=== PATIENT | male | born 1955 | race Caucasian/White ===

== ENCOUNTER 2018-03-06 07:38 | Inpatient (IN) ==
--- NOTE | 2018-03-01 15:49 | MH ---
cc: Estelle Krishna MD DATE OF ADMISSION: 03/06/2018 DATE OF ADMISSION: 03/06/2018 ADMITTING DIAGNOSIS: Osteoarthritic degeneration left hip, now being admitted for left total hip arthroplasty. HISTORY OF PRESENT ILLNESS: This pleasant 62-year-old male is being admitted today for left total hip arthroplasty due to severe painful osteoarthritic degeneration of the left hip. PAST MEDICAL HISTORY: He has a history of back pain and arthritis. CURRENT MEDICATIONS: Antiinflammatories, which he is not taking at the moment. PAST SURGICAL HISTORY: Hernia repair. REVIEW OF SYSTEMS: Noncontributory. FAMILY HISTORY: Noncontributory. SOCIAL HISTORY: Does smoke cigarettes; a few a day and does work. ALLERGIES: HE HAS NO KNOWN ALLERGIES. PHYSICAL EXAMINATION: GENERAL: We find a 62-year-old male, well-developed, well-nourished, alert and oriented x 3, complaining of pain in his left hip. VITAL SIGNS: Blood pressure 140/90, pulse 106 and regular, respirations 16, temperature 97.7, pulse oximetry 96% on room air. HEENT: Eyes: PERRL. EOMI. Ears, nose, mouth clear. NECK: Supple. LUNGS: Clear. HEART: Regular rate. ABDOMEN: Soft, positive bowel sounds, nontender. EXTREMITIES: Reveal left to have decreased range of motion. He is neurovascularly intact to his toes. IMPRESSION: Severe painful osteoarthritic degeneration of the left hip. PLAN: Admission for left total hip arthroplasty . The patient was given prescription for postoperative pain and anticoagulation control in the office. MD CORBY Lugo/guy/mago , 01:52 PM , 01:59 PM
[2018-03-06] MEDS ORDERED: Chlorhexidine Gluconate 2% 1 Pack (2 Cloths) TOPICAL SCH (08:58)
[2018-03-06] MEDS ORDERED: Metoprolol Tartrate 25 MG Tablet PO SCH (08:58)
[2018-03-06] MEDS ORDERED: Sodium Chlor 0.9% Inj 500 ML IV.SIG SCH (09:00)
[2018-03-06] MEDS ORDERED: Sodium Chlor 0.9% Inj 80 ML, Bupivacaine Liposo PF 1.3% Inj 20 ML, Bupivacaine 0.25% In... P-ARTICULR SCH ×3 (09:00)
[2018-03-06] MEDS ORDERED: ceFAZolin 2 GM Premix Inj 2 GM/50 ML PIGGYBACK IV.SIG SCH (09:00)
[2018-03-06] MEDS ORDERED: Vancomycin Inj 1,000 MG in Sodium Chlor 0.9% Inj 250 ML IV.SIG SCH (09:00)
[2018-03-06] MEDS ORDERED: Chlorhexidine 4% Topical 120 APPLIC/120 ML Bottle TOPICAL SCH (09:00)
[2018-03-06] MEDS ORDERED: Acetaminophen 500 MG Tablet PO PRN (10:23)
[2018-03-06] MEDS ORDERED: Morphine Inj 4 MG/ML Vial IV.PUSH PRN (10:24)
[2018-03-06] MEDS ORDERED: Bisacodyl 10 MG Supp RECTAL PRN (10:24)
[2018-03-06] MEDS ORDERED: Post-op Orders (for Pharmacy) OTHER STA (10:24)
--- NOTE | 2018-03-06 10:38 | P.DCO ---
- Diagnosis (1) Status post total replacement of left hip Status: Acute - Physical Therapy Order: Evaluate and treat, Improve ambulation, Strength and gait training - Home Health Nursing Order: Medical education - Case Management Consult Yes - Certification I have seen patient Elio Coffey on 03/06/18. My clinical findings support the need for the requested home health care services because: High risk of falls I certify that my clinical findings support that this patient is homebound because: Post-op weakness, Unsteady gait/balance, Unsafe to leave home unassisted
[2018-03-06] MEDS ORDERED: Tranexamic Acid Inj 1,000 MG in Sodium Chlor 0.9% Inj 100 ML IV.SIG SCH ×3 (11:00→15:00)
[2018-03-06] MEDS ORDERED: Neostigmine Inj 5 MG/5 ML Syringe IV.PUSH ONE (11:27)
[2018-03-06] MEDS ORDERED: Glycopyrrolate Inj 1 MG/5 ML Syringe IV.PUSH ONE (11:27)
[2018-03-06] MEDS ORDERED: Lidocaine PF 1% Inj 5 ML Syringe OTHER ONE (11:27)
[2018-03-06] MEDS ORDERED: Phenylephrine/NS 1000 MCG/10ML Syringe IV.PUSH ONE (11:27)
[2018-03-06] MEDS ORDERED: HYDROmorphone PF Inj 1 MG/ML Ampul ONE (12:21)
[2018-03-06] MEDS ORDERED: *morphine SULFATE 4 MG/ML PERIprocedure ONLY ONE ×4 (13:56→19:57)
[2018-03-06] MEDS ORDERED: fentaNYL Citrate Inj 100 MCG/2 ML Ampul ONE (13:59)
--- NOTE | 2018-03-06 14:03 | MP ---
cc: Estelle Krishna MD DATE OF OPERATION: 03/06/2018 PREOPERATIVE DIAGNOSIS: Osteoarthritic degeneration, left hip. POSTOPERATIVE DIAGNOSIS: Osteoarthritic degeneration, left hip. SURGERY PERFORMED: Left total hip arthroplasty using Aesculap components, size 58 cup with one 6.5 x 28 mm screw, a size 15 stem with a -4 ceramic head size 36 and a 36 liner. SURGEON: Estelle Krishna MD BEHAVIORAL HEALTH CASE MANAGER: Jesica Delgado APRN ANESTHESIA: General intubation. PROCEDURE: The patient was brought to the Operating Room, where after successful induction of spinal anesthesia was placed on the operating room table in the right lateral decubitus position. The left hip, thigh and leg were prepped and draped in the usual manner. A posterolateral approach was then utilized by making an incision over the proximal portion of the femur lateral aspect, carried across the greater trochanter, carried posterior in a curved incision toward the buttock. The incision was carried down through the subcutaneous tissue, through the fibers of the tensor fascia corrine and gluteus urszula to expose the greater trochanteric bursa. This was then removed by sharp and blunt dissection. The hip was then internally rotated to expose the insertions of the short external rotators of the hip and were incised at their insertion into the greater trochanter and reflected posterior to protect the sciatic nerve. These were held with a Charnley retractor to better visualize the hip joint. The capsule was identified and removed by sharp dissection. The hip was then dislocated by internal rotation and flexion of the hip. The femoral calcar was then measured using the trial components for the appropriate length cut of the neck using an oscillating saw. After the cut was made the head was removed. The acetabulum was then approached and measured, the acetabulum reamed with the acetabular reamers. Next, the femoral calcar was approached by first inserting a canal finder followed by rigid reamers, followed by a cookie-cutter to the appropriate size, in this case being a #15. The broach was left in place and a planer used to plane the calcar to a smooth finish. The broach was then removed. The trial components were then inserted into place, the hip reduced, found to track smoothly with no evidence of subluxation or dislocation. All trial components were removed. The wound was irrigated copiously with antibiotic solution and Water Pik. The actual components were then inserted and impacted into place using the aforementioned components. The hip was reduced, found to track smoothly with no evidence of subluxation or dislocation. The wound was irrigated copiously with antibiotic solution, meticulous hemostasis achieved. The capsule was then approximated using interrupted #1 Vicryl suture, two Hemovacs inserted. The deep fascia, the tensor fascia corrine and gluteus urszula were approximated using running #1 Vicryl suture, the subcutaneous tissue approximated using interrupted 2-0 Vicryl suture and the skin approximated with sandra. Wet and dry dressing was applied to the wound followed by Xeroform gauze and sterile dressing. An abduction pillow splint was then applied as well. Estimated blood loss was 300 mL. Sponge and suture counts were correct. The patient tolerated the procedure well and left the Operating Room in satisfactory condition. Meticulous hemostasis. The sciatic nerve identified and protected throughout the procedure. Sixty mL of a mixture of Exparel, normal saline, 0.25% Marcaine plain injected around the anterior part of the hip joint, staying away from the sciatic nerve. The capsule approximated with interrupted #1 Vicryl, deep fascia proximally with running #2 Quill. Subcutaneous tissue approximated using interrupted and running 2-0 and 3-0 Monocryl suture. Prineo dressing and abduction pillow brace and knee immobilizer. No drain utilized. Estimated blood loss 300 mL. Sponge and needle count correct. The patient tolerated the procedure well and left the operating room in satisfactory condition. Jesica Delgado APRN, was present during the entire procedure to include patient positioning and the procedure. The medical necessity of nurse practitioner mechanic's assistant was indicated in this case due to the surgical complexity of the case itself. During the surgical case, the nursing surgical services director was working the back table while my surgical clinical reviewer RYLIE was directly assisting me. JMD CORBY Blanc/es , 01:38 PM , 01:45 PM
--- NOTE | 2018-03-06 14:23 | XR ---
EXAM DATE: 03/06/2018 2:19 PM EDT AGE/SEX: 62 years / Male INDICATIONS: Post op left hip surgery. CLINICAL DATA: This is the patient's initial encounter. Patient reports that signs and symptoms have been present for 1 day and indicates a pain score of 5/10. MEDICAL/SURGICAL HISTORY: None. None. COMPARISON: POI, XR HIP AP AND LAT, LEFT, 02/25/2017. . FINDINGS: The patient is post left hip arthroplasty. Orthopedic hardware is in excellent position. Alignment is good. CONCLUSION: Orthopedic hardware in excellent position. No evidence of complication. Electronically signed by: Raheem Rodriguez MD 03/06/2018 2:22 PM EDT
--- NOTE | 2018-03-06 17:21 | P.BOP ---
- Preoperative Diagnosis (1) Osteoarthritis of left hip - Postoperative Diagnosis (1) Status post total replacement of left hip Date of procedure: 03/06/18 Procedure: Left Total Hip Arthroplasty Implants: see implant record Anesthesia: GETA Surgeon: Erlinda Krishna MD Flour Mixer: Jesica Delgado Estimated blood loss (mL): 300 Urine output (mL): 0 (no alejandre) Pathology: none sent Condition: stable Disposition: PACU
[2018-03-06 22:13] VITALS: RESP 18
[2018-03-07] MEDS: Senna/Docusate Sodium 8.6/50 MG Tablet PO SCH ×2 (01:03→09:29)
[2018-03-07] MEDS: Multivitamin/Minerals Therapeutic Tablet PO SCH ×2 (01:07→09:29)
[2018-03-07 07:28] LABS: Hematocrit 36.7 % (39.0-51.0); Hemoglobin 12.5 gm/dL (13.0-17.0)
--- NOTE | 2018-03-07 10:06 | P.PNOP ---
Subjective Interval history: Patient comfortable with minimal complaints of pain. Ready for discharge. Physical Exam Vital signs: Vital Signs 03/06/18 13:51 03/06/18 13:58 03/06/18 14:00 Temperature 97.6 F Pulse Rate 74 71 Respiratory Rate 15 15 15 Blood Pressure 137/85 138/81 Pulse Oximetry 98 98 03/06/18 14:15 03/06/18 14:30 03/06/18 14:45 Temperature 97.5 F L Pulse Rate 71 62 61 Respiratory Rate 16 12 12 Blood Pressure 148/70 H 134/71 131/78 Pulse Oximetry 97 98 97 03/06/18 15:00 03/06/18 15:30 03/06/18 16:00 Temperature Pulse Rate 63 64 71 Respiratory Rate 12 11 L 13 Blood Pressure 146/80 H 132/76 150/75 H Pulse Oximetry 98 98 97 03/06/18 17:00 03/06/18 18:00 03/06/18 19:00 Temperature 98.4 F Pulse Rate 82 102 H 85 Respiratory Rate 16 18 13 Blood Pressure 154/86 H 142/74 H 117/75 Pulse Oximetry 96 98 99 03/06/18 20:58 03/06/18 23:00 03/07/18 03:05 Temperature 98.4 F 98.3 F 98.0 F Pulse Rate 97 H 91 H 80 Respiratory Rate 18 18 18 Blood Pressure 132/88 112/66 113/70 Pulse Oximetry 96 97 96 03/07/18 08:00 Temperature 97.8 F Pulse Rate 79 Respiratory Rate 18 Blood Pressure 114/71 Pulse Oximetry 97 Intake & Output 03/06/18 03/07/18 03/07/18 18:59 06:59 18:59 Intake Total 1470 / 1470 1594 / 1594 100 / 100 Output Total 500 / 500 950 / 950 Balance 970 / 970 644 / 644 100 / 100 Weight 79.5 kg 80 kg Intake: IV 1470 / 1470 1114 / 1114 100 / 100 LR 1000 mL Inj 1,000 ML @ 80 1014 / 1014 mls/hr IV.CONT .[id number] BALTAZAR Rx# :[id number] LR 1000 mL Inj 1,000 ML @ 30 1000 / 1000 mls/hr IV.SIG .Q24H BALTAZAR Rx#: [id number] Cyklokapron Inj 1,000 MG In NS 220 / 220 Inj 100 ML @ 200 mls/hr IV.SIG ACCOUNTING ADMINISTRATOR BALTAZAR Rx#:[id number] Vancomycin Inj 1,000 MG In NS 250 / 250 Inj 250 ML @ 250 mls/hr IV.SIG ACCOUNTING ADMINISTRATOR BALTAZAR Rx#:[id number] Ancef Inj 1,000 MG In NS Inj 100 / 100 100 / 100 100 ML @ 200 mls/hr IV.SIG Q6H BALTAZAR Rx#:[id number] Oral 480 / 480 Output: Urine 200 / 200 950 / 950 Estimated Blood Loss 300 / 300 Other: # Voids 1 1 Date of Last Bowel Movement 03/06/18 # Bowel Movements 0 Weight On Admission 79.5 kg - Constitutional no acute distress Results - Labs CBC & Chem 7: 03/07/18 05:25 Laboratory Results - last 24 hr 03/07/18 05:25 Hgb 12.5 L Hct 36.7 L - Imaging Impressions Hip X-Ray 03/06/18 10:24 CONCLUSION: Orthopedic hardware in excellent position. No evidence of complication. Assessment and Plan - Problem List (1) Status post total replacement of left hip Code(s): Z96.642 - Presence of left artificial hip joint Status: Acute - Attending Attestation Attending Attestation: Patient sitting in chair comfortably. Dressing dry and intact. He is neurovascularly intact to his toes with no calf tenderness. Plan is for discharge after class today to home with home health care. Follow-up in the office next week for recheck.
[2018-03-07 13:01] VITALS: BP 144/73; PULSE 110; TEMP 98; O2SAT 95
== END 2018-03-07 14:20 | disposition home health service (06) ==
LOC: HSDC 07:38 → HSDI 10:24 → EDSTATUS 10:30 → N06 20:11
PROVIDERS: ADMIT Surgery; ATTEND Surgery